=== PATIENT | female | born 1995 | race African-American/Black ===

== ENCOUNTER 2018-02-28 18:39 | Emergency (ER) | payer OTHER ==
[2018-02-28 18:54] VITALS: BP 136/77; PULSE 89; TEMP 98.4; BMI 34.4
[2018-02-28 20:35] LABS: BASO % 0.9 % (0-2.0); HEMATOCRIT 35.8 % (32.4-45.2); HEMOGLOBIN 12.6 GM/dL (10.7-15.3); MCH 31.6 pg (25.7-33.7); MEAN CELL VOLUME 90.1 fl (80-96); MEAN PLT VOLUME 7.2 fl (7.5-11.1); MONO % 8.7 % (3.8-10.2); NEUT % 53.4 % (42.8-82.8); PLATELET COUNT 258 K/MM3 (134-434); RBC 3.98 M/mm3 (3.60-5.2); WHITE BLOOD COUNT 7.8 K/mm3 (4.0-10.0)
[2018-02-28 20:38] LABS: URINE APPEARANCE CLEAR; URINE BILIRUBIN NEGATIVE (<2.0 mg/dL); URINE BLOOD 1+ (NEGATIVE); URINE COLOR YELLOW; URINE GLUCOSE (UA) NEGATIVE (NEGATIVE); URINE KETONE NEGATIVE (NEGATIVE); URINE LEUK ESTERASE NEGATIVE (NEGATIVE); URINE NITRITE NEGATIVE (NEGATIVE); URINE PROTEIN NEGATIVE (NEGATIVE); URINE UROBILINOGEN NEGATIVE mg/dL (0.2-1.0)
--- NOTE | 2018-02-28 20:48 | PDOC ---
History of Present Illness - General Chief Complaint: Vaginal Bleeding Stated Complaint: VAGINAL BLEEDING (5WKS ) Time Seen by Provider: 02/28/18 19:18 History Source: Patient Exam Limitations: No Limitations - History of Present Illness Travel History: No Initial Comments: 02/28/18 20:47 Best Contact: PCP:None. Clinic in [facility] [place] Pmhx: N/A Pshx: N/A Allergies: NKDA LMP: 01/21/2018 22-year-old female presents to the emergency department complaining of vaginal spotting with slight pelvic discomfort since last evening. Patient denies fever , chills, nausea/vomiting, chest pain, shortness of breath, flank pains, abdominal pains, urinary symptoms: Frequency/urgency/hesitancy, hematuria. There are no alleviating or exacerbating factors. Patient states her first clinic appointment when she discovered she was was 3 weeks ago. Patient 's first appointment will be 03/16/2018 at a clinic in the [place] Past History - Past Medical History Allergies/Adverse Reactions: Allergies Allergy/AdvReac Type Severity Reaction Status Date / Time No Known Allergies Allergy Verified 02/28/18 18:50 Home Medications: Ambulatory Orders NK [No Known Home Medication] 02/28/18 CVA: No COPD: No - Reproductive History Is Patient Now?: Yes (#): 2 Para: 0 Therapeutic (s) & number: Yes (1) - Immunization History Immunization Up to Date: Yes - Suicide/Smoking/Psychosocial Hx Smoking History: Never smoked Have you smoked in the past 12 months: No Information on smoking cessation initiated: No Hx Alcohol Use: No Drug/Substance Use Hx: No Substance Use Type: None Review of Systems - Review of Systems Able to Perform ROS?: Yes Comments:: 02/28/18 22:34 CONSTITUTIONAL: Absent: fever, chills, diaphoresis, generalized weakness, malaise, loss of appetite HEENT: Absent: rhinorrhea, nasal congestion, throat pain, throat swelling, difficulty swallowing, mouth swelling, ear pain, eye pain, visual Changes CARDIOVASCULAR: Absent: chest pain, loss of consciousness, palpitations, irregular heart rate, peripheral edema RESPIRATORY: Absent: cough, shortness of breath, dyspnea with exertion, orthopnea, wheezing, stridor, hemoptysis GASTROINTESTINAL: +Vag spotting Absent: abdominal pain, abdominal distension, nausea, vomiting, diarrhea, constipation, melena, hematochezia GENITOURINARY: Absent: dysuria, frequency, urgency, hesitancy, hematuria, flank pain, genital pain MUSCULOSKELETAL: Absent: myalgia, arthralgia, joint swelling SKIN: Absent: rash, itching, pallor Is the patient limited [place]alan proficient: No *Physical Exam - Vital Signs Last Vital Signs Temp Pulse Resp BP Pulse Ox 98.4 F 89 15 136/77 100 02/28/18 18:51 02/28/18 18:51 02/28/18 18:51 02/28/18 18:51 02/28/18 18:51 - Physical Exam Comments: 02/28/18 22:34 GENERAL: Well developed, well nourished. Awake and alert. No acute distress. HEENT: Normocephalic, atraumatic. PERRLA, EOMI. No conjunctival pallor. Sclera are non- icteric. Moist mucous membranes. Oropharynx is clear. NECK: Supple. Full ROM. No JVD. Carotid pulses 2+ and symmetric, without bruits. No thyromegaly. No lymphadenopathy. CARDIOVASCULAR: Regular rate and rhythm. No murmurs, rubs, or gallops. Distal pulses are 2+ and symmetric. PULMONARY: No evidence of respiratory distress. Lungs clear to auscultation bilaterally. No wheezing, rales or rhonchi. ABDOMINAL: Soft. Non-tender. Non-distended. No rebound or guarding. No organomegaly. Normoactive bowel sounds. SKIN: Warm and dry. Normal capillary refill. No rashes. No jaundice. Pelvic: External genitalia normal without lesions. Vaginal vault is clear without blood or discharge. Cervix is long and closed. ED Treatment Course - LABORATORY CBC & Chemistry Diagram: 02/28/18 20:05 02/28/18 20:05 - ADDITIONAL ORDERS Additional order review: 02/28/18 20:05 RBC 3.98 MCV 90.1 MCHC 35.0 RDW 13.0 MPV 7.2 L Neutrophils % 53.4 Lymphocytes % 36.0 Monocytes % 8.7 Eosinophils % 1.0 Basophils % 0.9 - RADIOLOGY Radiology Studies Ordered: Category Date Time Status TRANSVAGINAL US PREG [US] Stat Ultrasound 02/28/18 19:34 Ordered Radiograph Interpretation: 02/28/18 22:35 Transvaginal US: Single intrauterine gestation with average estimated gestational age of 5 weeks and 6 days. ABIGAIL is 10/25/2018. *DC/Admit/Observation/Transfer Diagnosis at time of Disposition: Threatened - Discharge Dispostion Disposition: HOME Condition at time of disposition: Stable Admit: No - Referrals Referrals: Manfred Holder MD [Staff Physician] - - Patient Instructions Printed Discharge Instructions: DI for Threatened Additional Instructions: Pelvic rest Increase fluids Your beta hCG quantitative today is: 27,468.0 Return back to the ER for severe/persistent or worsening symptoms - Post Discharge Activity
[2018-02-28 20:52] LABS: EPI CELLS RARE /HPF (FEW); URINE BACTERIA RARE /hpf (NONE SEEN); URINE MUCUS RARE
[2018-02-28 21:15] LABS: ALBUMIN 3.5 g/dl (3.4-5.0); ANION GAP 6 (8-16); BILIRUBIN,TOTAL 0.2 mg/dL (0.2-1.0); BLOOD UREA NITROGEN 8 mg/dL (7-18); CALCIUM 8.5 mg/dL (8.5-10.1); CHLORIDE 109 mmol/L (98-107); CO2 24 mmol/L (21-32); CREATININE 0.7 mg/dL (0.55-1.02); GLUCOSE,RANDOM 91 mg/dL (74-106); SGOT/AST 14 U/L (15-37); SGPT/ALT 17 U/L (12-78); SODIUM 139 mmol/L (136-145); TOT PROT 7.3 g/dl (6.4-8.2)
[2018-02-28 21:16] LABS: ALK PHOS 88 U/L (45-117)
== END 2018-02-28 23:41 | disposition home or self-care (01) ==
LOC: JER 18:39
DX: O26.891 Other specified pregnancy related conditions, first trimester (principal); O20.0 Threatened abortion; Z3A.01 Less than 8 weeks gestation of pregnancy
CPT/HCPCS: 36415; 76817-TC; 80053; 81003; 81015; 84702; 85025; 86850; 86900; 86901; 99282-25